=== PATIENT | female | born 1975 | race Caucasian/White ===

== ENCOUNTER 2017-12-20 13:30 | Emergency (ER) | payer MEDICAID ==
[~2017-12-20] VITALS: Ht 175.3 cm; Wt 104.0 kg
[~2017-12-20 13:30] MED LIST: ALPR2TAB2 PO
[2017-12-20 13:34] VITALS: BP 168/96
== END 2017-12-20 14:58 | disposition home or self-care (01) ==
LOC: ED 14:52
DX: S76.011A Strain of muscle, fascia and tendon of right hip, initial encounter (principal); S39.012A Strain of muscle, fascia and tendon of lower back, initial encounter; M54.41 Lumbago with sciatica, right side; Z86.73 Personal history of transient ischemic attack (TIA), and cerebral infarction without residual deficits; I25.2 Old myocardial infarction; W01.0XXA Fall on same level from slipping, tripping and stumbling without subsequent striking against object, initial encounter; Y93.89 Activity, other specified; Y92.828 Other wilderness area as the place of occurrence of the external cause; Y99.8 Other external cause status
CPT/HCPCS: 99284

== ENCOUNTER 2019-11-29 10:12 | Emergency (ER) | payer MEDICAID ==
[~2019-11-29] VITALS: Ht 175.3 cm; Wt 107.0 kg
[2019-11-29 10:23] VITALS: BP 135/88
[2019-11-29] MEDS ORDERED: METHADONE PO (11:09)
[2019-11-29] MEDS ORDERED: IBUPROFEN 600 MG TABLET PO ONE (12:30)
[2019-11-29] MEDS ORDERED: KETOROLAC 30 MG/1 ML IM ONE (12:30)
[2019-11-29] MEDS ORDERED: IBUPROFEN 600 MG TABLET ONE (12:32)
== END 2019-11-29 12:40 | disposition home or self-care (01) ==
LOC: ED 11:17
DX: M25.511 Pain in right shoulder (principal); M54.5 Low back pain; I25.2 Old myocardial infarction; F17.200 Nicotine dependence, unspecified, uncomplicated; Z86.73 Personal history of transient ischemic attack (TIA), and cerebral infarction without residual deficits; Y04.8XXA Assault by other bodily force, initial encounter; Y93.01 Activity, walking, marching and hiking; Y92.89 Other specified places as the place of occurrence of the external cause; Y99.8 Other external cause status
CPT/HCPCS: 72110; 99284

== ENCOUNTER 2020-01-07 14:50 | Emergency (ER) | payer MEDICAID ==
[~2020-01-07] VITALS: Ht 170.2 cm; Wt 106.4 kg
[~2020-01-07 14:50] MED LIST changes: +METHADONE PO
[2020-01-07 14:57] VITALS: BP 136/79
[2020-01-07] MEDS ORDERED: LORazepam 1MG TABLET ONE (15:18)
--- NOTE | 2020-01-07 15:21 | NUR ---
pt medicated per emar. pt tolerated well.
[2020-01-07] MEDS ORDERED: LORazepam 1MG TABLET PO ONE (15:30)
--- NOTE | 2020-01-07 15:40 | NUR ---
Patient given discharge instructions and they have confirmed that they understand the instructions. Patient ambulatory with steady gait.
== END 2020-01-07 15:41 | disposition home or self-care (01) ==
LOC: ED 14:55
DX: F41.1 Generalized anxiety disorder (principal); F17.210 Nicotine dependence, cigarettes, uncomplicated; I25.2 Old myocardial infarction; Z86.73 Personal history of transient ischemic attack (TIA), and cerebral infarction without residual deficits
CPT/HCPCS: 99283; 99406

== ENCOUNTER 2020-01-16 09:07 | Emergency (ER) | payer MEDICAID ==
[~2020-01-16] VITALS: Ht 175.3 cm; Wt 107.6 kg
[2020-01-16 09:11] VITALS: BP 131/82
[2020-01-16] MEDS ORDERED: LORazepam 1MG TABLET ONE (10:03)
[2020-01-16] MEDS ORDERED: LORazepam 1MG TABLET PO ONE (11:00)
== END 2020-01-16 11:09 | disposition home or self-care (01) ==
LOC: ED 09:57
DX: J06.9 Acute upper respiratory infection, unspecified (principal); Z20.828 Contact with and (suspected) exposure to other viral communicable diseases; R05 Cough; R50.9 Fever, unspecified; R09.81 Nasal congestion
CPT/HCPCS: 36415; 71045; 87635; 99284

== ENCOUNTER 2020-02-07 06:05 | Emergency (ER) | payer MEDICAID ==
[~2020-02-07] VITALS: Ht 160 cm; Wt 104.3 kg
[2020-02-07 06:07] VITALS: BP 124/78
--- NOTE | 2020-02-07 06:38 | NUR ---
PT GIVEN CLONAZEPAM AND D/C. AMBULATORY AT DISCHARGE. VERBALIZED UNDERSTANDING TO FOLLOW UP WITH PCP FOR PRESCRIPTION REFILL.
== END 2020-02-07 06:39 | disposition home or self-care (01) ==
LOC: ED 06:07
DX: F41.1 Generalized anxiety disorder (principal); I25.2 Old myocardial infarction; F17.210 Nicotine dependence, cigarettes, uncomplicated; Z86.73 Personal history of transient ischemic attack (TIA), and cerebral infarction without residual deficits
CPT/HCPCS: 99283; 99406

== ENCOUNTER 2020-02-16 11:14 | Emergency (ER) | payer MEDICAID ==
[~2020-02-16] VITALS: Ht 175.3 cm; Wt 101.0 kg
[2020-02-16 11:22] VITALS: BP 128/89
[2020-02-16] MEDS ORDERED: LORazepam 1MG TABLET ONE (11:52)
--- NOTE | 2020-02-16 12:05 | NUR ---
medical record transcriber as per mar
[2020-02-16] MEDS ORDERED: LORazepam 1MG TABLET PO ONE (12:30)
== END 2020-02-16 12:11 | disposition home or self-care (01) ==
LOC: ED 11:33
DX: F41.9 Anxiety disorder, unspecified (principal)
CPT/HCPCS: 99283

== ENCOUNTER 2020-03-28 11:07 | Emergency (ER) | payer MEDICAID ==
[~2020-03-28] VITALS: Ht 175.3 cm; Wt 105.8 kg
[2020-03-28 11:15] VITALS: BP 137/98
--- NOTE | 2020-03-28 11:47 | NUR ---
NO IV TO DC. REVIEWED DC INSTRUCTIONS WITH PT. UNDERSTANDING VERBALIZED. PT LEFT AMB, GAIT STEADY.
== END 2020-03-28 11:50 | disposition home or self-care (01) ==
LOC: ED 11:48
DX: F41.9 Anxiety disorder, unspecified (principal); Z76.0 Encounter for issue of repeat prescription
CPT/HCPCS: 99281

== ENCOUNTER 2020-04-08 12:56 | Emergency (ER) | payer MEDICAID ==
[~2020-04-08] VITALS: Ht 170.2 cm; Wt 107.1 kg
[2020-04-08] MEDS ORDERED: VANCOMYCIN PER PHARMACY MC ONE (13:30)
[2020-04-08] MEDS ORDERED: SODIUM CHLORIDE 0.9% 1,000ML IVBOLUS ONE (13:30)
--- NOTE | 2020-04-08 13:45 | NUR ---
PT ABLE TO GET UP TO BEDSIDE COMMODE TO VOID. URINE SAMPLE OBTAINED. PT ABLE TO TRANSFER BACK TO BED ON OWN. PT IN HOSPITAL GOWN. WILL CONTINUE TO MONITOR.
[2020-04-08] MEDS ORDERED: LORazepam 2 MG/ML, 1ML IVPush ONE (14:00)
[2020-04-08 14:14] LABS: BASOPHILS % (AUTO) 1 % (0-1); EOSINOPHILS % (AUTO) 1 % (1-7); LYMPHOCYTES % (AUTO) 9 % (22-44); MEAN CORPUSCULAR HEMOGLOBIN 28.9 pg (27.0-34.8); MEAN CORPUSCULAR HGB CONC 33.3 g/dL (32.4-35.8); MEAN PLATELET VOLUME 7.3 fL (7.4-10.4); MONOCYTES % (AUTO) 10 % (2-9); NEUTROPHILS % (AUTO) 79 % (42-75); PLATELET COUNT 302 x10^3/uL (130-400); RED BLOOD COUNT 4.44 x10^6/uL (3.82-5.3); RED CELL DISTRIBUTION WIDTH 14.7 % (9.6-15.2)
[2020-04-08 14:17] LABS: ALBUMIN 3.4 g/dL (3.4-5.0); ANION GAP 7 mmol/L (5-15); CALCIUM 8.9 mg/dL (8.5-10.1); CHLORIDE 103 mmol/L (98-107); CREATININE 0.95 mg/dL (0.55-1.02)
[2020-04-08 14:22] LABS: MD NO
--- NOTE | 2020-04-08 14:26 | NUR ---
BREAK RN: UNABLE TO GET IV ACCESS ON PATIENT. DR AGUILAR AWARE. MD WANTS TO WAIT ON IV AT THIS TIME. VS STABLE. US DONE. CALL LIGHT IN PLACE. WILL CONTINUE TO MONITOR WHILE PRIMARY RN IS ON BREAK.
[2020-04-08] MEDS ORDERED: VANCOMYCIN 2,100 MG in SODIUM CHLORIDE 0.9% 500 ML IV ONE (14:30)
[2020-04-08] MEDS ORDERED: CLINDAMYCIN 300 MG CAPSULE PO ONE (14:30)
[2020-04-08] MEDS ORDERED: CLINDAMYCIN 300 MG CAPSULE ONE (14:38)
--- NOTE | 2020-04-08 14:43 | NUR ---
BREAK RN: BEDSIDE REPORT GIVEN TO ESAU BRAR
[2020-04-08 15:52] VITALS: BP 141/93
[2020-04-08] MEDS ORDERED: NEOSPORIN OINT. PKT 1 PACKET ONE (17:57)
== END 2020-04-08 17:06 | disposition home or self-care (01) ==
LOC: ED 13:45
DX: L03.116 Cellulitis of left lower limb (principal); F41.1 Generalized anxiety disorder; I25.2 Old myocardial infarction; Z86.73 Personal history of transient ischemic attack (TIA), and cerebral infarction without residual deficits
CPT/HCPCS: 36415; 80048; 82040; 85025; 87040; 99284

== ENCOUNTER 2020-05-30 22:58 | Emergency (ER) | payer MEDICAID ==
[~2020-05-30] VITALS: Ht 175.3 cm; Wt 106.8 kg
[2020-05-30 23:05] VITALS: BP 114/72
[2020-05-30] MEDS ORDERED: LORazepam 1MG TABLET PO ONE (23:30)
[2020-05-30] MEDS ORDERED: LORazepam 1MG TABLET ONE (23:36)
--- NOTE | 2020-05-31 00:31 | NUR ---
Pt to ER with c/o having panic attacks and being out of meds. Upon going to medicated pt, pt sleepy, unable to stay awake and complete sentences. Provider aware, and medication held d/t pt beind drowsy. After provider went to talk to patient about not prescribing more medcations, pt eloped. Pt out of dept, steady on feet. Provider aware.
== END 2020-05-31 00:36 | disposition left against medical advice (07) ==
LOC: ED 23:41
DX: F41.9 Anxiety disorder, unspecified (principal); I25.2 Old myocardial infarction; F17.210 Nicotine dependence, cigarettes, uncomplicated; Z86.73 Personal history of transient ischemic attack (TIA), and cerebral infarction without residual deficits
CPT/HCPCS: 99281; 99406

== ENCOUNTER 2020-08-31 11:02 | Inpatient (IN) | payer MEDICAID ==
[~2020-08-31] VITALS: Ht 165.1 cm; Wt 110.9 kg
[2020-08-31] MEDS ORDERED: NALOXONE 0.4 MG/ML, 1ML ONE ×2 (11:05→15:05)
--- NOTE | 2020-08-31 11:12 | NUR ---
IO PLACED ON LEFT TIBIA ON ARRIVAL.
[2020-08-31] MEDS ORDERED: PLEASE ENTER ALLERGIES MC SCH (11:30)
[2020-08-31] MEDS ORDERED: NALOXONE 0.4 MG/ML, 1ML IVPush ONE ×2 (11:30→15:00)
[2020-08-31] MEDS ORDERED: PLEASE ENTER HEIGHT AND WEIGHT MC SCH (11:30)
[2020-08-31] MEDS ORDERED: SODIUM CHLORIDE 0.9% 1,000ML IVBOLUS ONE (11:30)
[2020-08-31] MEDS ORDERED: SODIUM CHLORIDE FLUSH 10ML SYR IVF ONE (11:30)
--- NOTE | 2020-08-31 11:32 | NUR ---
PT RESTLESS AFTER NARCAN ADMIN, VITALS HAVE IMPROVED, BP 120/81.
[2020-08-31 11:50] LABS: BASOPHILS % (AUTO) 0 % (0-1); EOSINOPHILS % (AUTO) 1 % (1-7); LYMPHOCYTES % (AUTO) 26 % (22-44); MEAN CORPUSCULAR HEMOGLOBIN 28.4 pg (27.0-34.8); MEAN CORPUSCULAR HGB CONC 33.3 g/dL (32.4-35.8); MONOCYTES % (AUTO) 13 % (2-9); NEUTROPHILS % (AUTO) 60 % (42-75); PLATELET COUNT 295 x10^3/uL (130-400); RED BLOOD COUNT 4.64 x10^6/uL (3.82-5.3); RED CELL DISTRIBUTION WIDTH 14.1 % (9.6-15.2)
[2020-08-31 11:53] LABS: MD NO
--- NOTE | 2020-08-31 11:54 | NUR ---
PT CONTINUES TO BE RESTLESS. VITALS REMAIN STABLE. PT WAS ABLE TO PROVIDE HER FIRST NAME, DOROTEO.
--- NOTE | 2020-08-31 11:55 | NUR ---
PHARMACY IDENTIFIED PILLS FOUND ON PT TO BE XANAX 2MG TABLETS.
[2020-08-31 12:03] LABS: ALANINE AMINOTRANSFERASE 57 U/L (12-78); ALBUMIN 4.2 g/dL (3.4-5.0); ANION GAP 9 mmol/L (5-15); CHLORIDE 109 mmol/L (98-107); SALICYLATE LEVEL 2.1 mg/dL (2.8-20.0)
[2020-08-31 12:05] LABS: ALKALINE PHOSPHATASE 109 U/L (45-117); BILIRUBIN,TOTAL 0.4 mg/dL (0.2-1.0); TOTAL PROTEIN 7.7 g/dL (6.4-8.2)
--- NOTE | 2020-08-31 12:26 | NUR ---
STRAIGHT CATH URINE SAMPLE COLLECTED.
--- NOTE | 2020-08-31 12:41 | NUR ---
PT SLEEPING INTERMITTENLTY, PROTECTING AIRWAY, VITALS REMAIN STABLE.
[2020-08-31 12:46] LABS: AMPHETAMINE SCREEN, URINE Positive (Negative); BARBITURATE SCREEN, URINE Negative (Negative); BENZODIAZEPINE SCREEN, URINE Positive (Negative); CANNABINOID SCREEN, URINE Negative (Negative); COCAINE SCREEN, URINE Negative (Negative); METHADONE SCREEN, URINE Positive (Negative); OPIATE SCREEN, URINE Negative (Negative)
--- NOTE | 2020-08-31 13:41 | NUR ---
PT CONTINUES TO BE RESTLESS INTERMITTENTLY. PROTECTING AIRWAY.
[2020-08-31] MEDS ORDERED: HALOPERIDOL 5 MG/ML ONE (14:12)
--- NOTE | 2020-08-31 14:17 | NUR ---
HALDOL ADMINISTERED PER MD ORDER.
[2020-08-31] MEDS ORDERED: HALOPERIDOL 5 MG/ML IV ONE (14:30)
[2020-08-31] MEDS ORDERED: ACETAMINOPHEN 325 MG TABLET PO PRN (15:00)
[2020-08-31] MEDS ORDERED: BISACODYL 10 MG SUPP PR PRN (15:00)
[2020-08-31] MEDS ORDERED: POLYETHYLENE GLYCOL 17 GM PACKET PO PRN (15:00)
[2020-08-31] MEDS ORDERED: hydrALAzine 20 MG/ML, 1ML IVPush PRN (15:00)
[2020-08-31] MEDS ORDERED: NALOXONE 4 MG in SODIUM CHLORIDE 0.9% 246 ML IV PRN ×2 (15:00)
[2020-08-31] MEDS ORDERED: ONDANSETRON 2MG/ML, 2ML IVPush PRN (15:00)
--- NOTE | 2020-08-31 15:11 | NUR ---
REPORT TO SERGEY CIFUENTES.
--- NOTE | 2020-08-31 15:58 | NUR ---
PT TRANSPORTED TO CT AND TRANSFERRED TO CCU.
[2020-08-31] MEDS: HEPARIN 5,000 UNITS/ML, 1ML SQ SCH ×2 (16:00→23:15)
[2020-08-31] MEDS: SODIUM CHLORIDE 0.9% 1,000 ML IV SCH (17:48)
[2020-08-31] MEDS ORDERED: ZIPRASIDONE 20 MG INJ IM PRN (18:00)
[2020-08-31] MEDS ORDERED: FAMOTIDINE 20 MG/2 ML IVPush SCH (21:00)
[2020-09-01] MEDS: SODIUM CHLORIDE 0.9% 1,000 ML IV SCH (03:55)
[2020-09-01 04:31] LABS: BASOPHILS % (AUTO) 0 % (0-1); EOSINOPHILS % (AUTO) 2 % (1-7); LYMPHOCYTES % (AUTO) 36 % (22-44); MEAN CORPUSCULAR HEMOGLOBIN 28.6 pg (27.0-34.8); MEAN CORPUSCULAR HGB CONC 33.2 g/dL (32.4-35.8); MEAN PLATELET VOLUME 7.7 fL (7.4-10.4); MONOCYTES % (AUTO) 12 % (2-9); NEUTROPHILS % (AUTO) 50 % (42-75); PLATELET COUNT 255 x10^3/uL (130-400); RED CELL DISTRIBUTION WIDTH 14.7 % (9.6-15.2)
[2020-09-01 04:40] LABS: ALANINE AMINOTRANSFERASE 43 U/L (12-78); ALBUMIN 3.1 g/dL (3.4-5.0); ANION GAP 6 mmol/L (5-15); CALCIUM 7.7 mg/dL (8.5-10.1); CHLORIDE 113 mmol/L (98-107); CREATININE 0.82 mg/dL (0.55-1.02)
[2020-09-01 04:41] LABS: MD NO
[2020-09-01 04:43] LABS: ALKALINE PHOSPHATASE 95 U/L (45-117); BILIRUBIN,TOTAL 0.4 mg/dL (0.2-1.0); TOTAL PROTEIN 6.2 g/dL (6.4-8.2)
[2020-09-01] MEDS: HEPARIN 5,000 UNITS/ML, 1ML SQ SCH (06:01)
[2020-09-01] MEDS ORDERED: SENNA/DOCUSATE TABLET PO SCH (09:00)
[2020-09-01 13:19] VITALS: BP 110/74
== END 2020-09-01 15:37 | disposition left against medical advice (07) | DRG 917 ==
LOC: ED 14:20 → EDBD 14:42 → MERGE 14:42 → EDIP 14:42 → CCU 15:52 → 3N 09-01 11:24
PROVIDERS: ADMIT Internal Medicine; ATTEND Internal Medicine
DX: T42.4X1A Poisoning by benzodiazepines, accidental (unintentional), initial encounter (principal); N17.0 Acute kidney failure with tubular necrosis; E87.2 Acidosis; T40.2X1A Poisoning by other opioids, accidental (unintentional), initial encounter; I25.2 Old myocardial infarction; F41.9 Anxiety disorder, unspecified; B19.20 Unspecified viral hepatitis C without hepatic coma; F11.90 Opioid use, unspecified, uncomplicated; I25.10 Atherosclerotic heart disease of native coronary artery without angina pectoris; Z86.73 Personal history of transient ischemic attack (TIA), and cerebral infarction without residual deficits; Z53.29 Procedure and treatment not carried out because of patient's decision for other reasons; R73.9 Hyperglycemia, unspecified; Y92.89 Other specified places as the place of occurrence of the external cause
CPT/HCPCS: 36415; 70450; 71045; 72125; 80053; 80299; 80307; 80320; 80329; 83735; 84100; 85025; 87081; 93005; 96374; 96375; 99291; G0378; J1644; J2310; G0480; J1630; J7030; J7050

== ENCOUNTER 2020-09-25 13:26 | Emergency (ER) | payer MEDICAID ==
[~2020-09-25] VITALS: Ht 175.3 cm; Wt 106.6 kg
[2020-09-25 13:31] VITALS: BP 141/109
[2020-09-25 14:06] LABS: MICROSCOPIC INDICATED
[2020-09-25 14:25] LABS: BASOPHILS % (AUTO) 1 % (0-1); EOSINOPHILS % (AUTO) 3 % (1-7); LYMPHOCYTES % (AUTO) 32 % (22-44); MEAN CORPUSCULAR HEMOGLOBIN 27.8 pg (27.0-34.8); MEAN CORPUSCULAR HGB CONC 33.1 g/dL (32.4-35.8); MEAN PLATELET VOLUME 7.9 fL (7.4-10.4); MONOCYTES % (AUTO) 11 % (2-9); NEUTROPHILS % (AUTO) 53 % (42-75); PLATELET COUNT 338 x10^3/uL (130-400); RED BLOOD COUNT 5.07 x10^6/uL (3.82-5.3); RED CELL DISTRIBUTION WIDTH 14.5 % (9.6-15.2)
[2020-09-25 14:31] LABS: ALBUMIN 3.7 g/dL (3.4-5.0); ANION GAP 10 mmol/L (5-15); CALCIUM 8.8 mg/dL (8.5-10.1); CHLORIDE 110 mmol/L (98-107)
[2020-09-25 14:36] LABS: ALANINE AMINOTRANSFERASE 32 U/L (12-78); ALKALINE PHOSPHATASE 82 U/L (45-117); BILIRUBIN,TOTAL 0.3 mg/dL (0.2-1.0); TOTAL PROTEIN 7.8 g/dL (6.4-8.2)
--- NOTE | 2020-09-25 15:24 | NUR ---
sign shop supervisor: Pt ambulatory to room from lobby at this time.
[2020-09-25] MEDS ORDERED: FOSFOMYCIN 3 GM PACKET PO ONE (16:00)
[2020-09-25] MEDS ORDERED: PHENAZOPYRIDINE 200 MG TABLET PO ONE (16:00)
[2020-09-25] MEDS ORDERED: FOSFOMYCIN 3 GM PACKET ONE (16:03)
[2020-09-25] MEDS ORDERED: PHENAZOPYRIDINE 200 MG TABLET ONE (16:03)
== END 2020-09-25 16:34 | disposition home or self-care (01) ==
LOC: ED 13:56
DX: N30.01 Acute cystitis with hematuria (principal); I25.2 Old myocardial infarction; Z86.73 Personal history of transient ischemic attack (TIA), and cerebral infarction without residual deficits
CPT/HCPCS: 36415; 80053; 81001; 83690; 84703; 85025; 87077; 87086; 87186; 99283

== ENCOUNTER 2020-11-08 18:40 | Emergency (ER) | payer MEDICAID ==
[~2020-11-08] VITALS: Ht 175.3 cm; Wt 106.8 kg
[2020-11-08 18:49] VITALS: BP 103/80
--- NOTE | 2020-11-08 19:23 | NUR ---
PATIENT REPORTS SHE WAS AT HER FRIENDS HOUSE WHEN SHE TRIPPED WHEN LEAVING THE BATHROOM. PATIENT STATES HER FOOT HAS REMAINED SWOLLEN, SHE HAS FULL RANGE OF MOTION BUT REPORTS PAIN WITH MOVEMENT. THERE IS NO BRUISING VISIBLE. PULSES PRESENT, CSM INTACT.
[2020-11-08] MEDS ORDERED: SODIUM CHLORIDE FLUSH 10ML SYR IVF ONE (19:30)
[2020-11-08 19:47] LABS: BASOPHILS % (AUTO) 1 % (0-1); EOSINOPHILS % (AUTO) 3 % (1-7); LYMPHOCYTES % (AUTO) 30 % (22-44); MEAN CORPUSCULAR HEMOGLOBIN 27.5 pg (27.0-34.8); MEAN CORPUSCULAR HGB CONC 32.8 g/dL (32.4-35.8); MEAN PLATELET VOLUME 7.4 fL (7.4-10.4); MONOCYTES % (AUTO) 11 % (2-9); NEUTROPHILS % (AUTO) 55 % (42-75); PLATELET COUNT 367 x10^3/uL (130-400); RED BLOOD COUNT 4.72 x10^6/uL (3.82-5.3); RED CELL DISTRIBUTION WIDTH 14.4 % (9.6-15.2)
[2020-11-08 19:48] LABS: HCT (SEDRATE) 38.7 % (34.6-47.8)
[2020-11-08 19:52] LABS: ALANINE AMINOTRANSFERASE 39 U/L (12-78); ALBUMIN 3.4 g/dL (3.4-5.0); ANION GAP 10 mmol/L (5-15); C-REACTIVE PROTEIN, QUANT 0.83 mg/dL (0.02-0.49); CALCIUM 9.6 mg/dL (8.5-10.1); CHLORIDE 106 mmol/L (98-107)
[2020-11-08 19:54] LABS: ALKALINE PHOSPHATASE 104 U/L (45-117); BILIRUBIN,TOTAL 0.3 mg/dL (0.2-1.0); TOTAL PROTEIN 7.8 g/dL (6.4-8.2)
[2020-11-08] MEDS ORDERED: CEFAZOLIN PMX 1GM/50ML 50 ML ONE (20:07)
[2020-11-08] MEDS ORDERED: SULFAMETH./TRIMETHOPRIM DS 800MG/160MG TABLET ONE (20:07)
[2020-11-08] MEDS ORDERED: CEFAZOLIN PMX 1GM/50ML 50 ML IV ONE (20:30)
[2020-11-08] MEDS ORDERED: SULFAMETH./TRIMETHOPRIM DS 800MG/160MG TABLET PO ONE (20:30)
[2020-11-08] MEDS ORDERED: CEFAZOLIN 1,000 MG ONE (20:50)
[2020-11-08] MEDS ORDERED: OXYcodone/APAP 10/325MG TABLET ONE (20:51)
[2020-11-08] MEDS ORDERED: OXYcodone/APAP 10/325MG TABLET PO ONE (21:00)
[2020-11-08] MEDS ORDERED: CEFAZOLIN 1,000 MG IM ONE (21:00)
--- NOTE | 2020-11-08 21:01 | NUR ---
[facility]TON MEDICATED PER AT THIS TIME.
--- NOTE | 2020-11-08 21:12 | NUR ---
PT TO ULTRASOUND WITH ENVIRONMENTAL COMPLIANCE ENGINEER.
--- NOTE | 2020-11-08 21:42 | NUR ---
PT RETURNED FROM US WITH [facility]IA [employer]. PT TOLERATED WELL.
--- NOTE | 2020-11-08 22:36 | NUR ---
PATIENT INSTRUCTED ON USE OF CRUTCHES, DEMONSTRATED ABILITY TO USE SAFELY. Patient given discharge instructions and they have confirmed that they understand the instructions. Patient ambulatory with steady gait. NAD, all questions answered appropriately, denies additional needs at this time. No personal belongings left in room after discharge.
== END 2020-11-08 22:38 | disposition home or self-care (01) ==
LOC: ED 20:06
DX: S93.492A Sprain of other ligament of left ankle, initial encounter (principal); L03.116 Cellulitis of left lower limb; I25.2 Old myocardial infarction; F17.200 Nicotine dependence, unspecified, uncomplicated; Z86.73 Personal history of transient ischemic attack (TIA), and cerebral infarction without residual deficits; X58.XXXA Exposure to other specified factors, initial encounter; Y93.89 Activity, other specified; Y92.89 Other specified places as the place of occurrence of the external cause; Y99.8 Other external cause status
CPT/HCPCS: 36415; 73610; 73630; 80053; 83605; 85025; 85651; 86140; 87040; 93971; 96372; 99285; J0690